=== PATIENT | male | born 1940 | race Caucasian/White ===

== ENCOUNTER → 2017-03-17 | Outpatient (CLI) | payer MEDICARE, OTHER ==
[~2017-03-17] MED LIST: AMLO1CAP7 PO; AMOX1TAB12 PO; ASPI-496 PO; CHOL400C PO; DESM0.1T PO; EMPA25TA PO; EXEN2VIA INJ; FENO150C4 PO; FERR324T8 PO; GADOBUTROL 10 MMOL/10 ML VIAL ONE; HYDR10TA PO; LEVO75TA PO; LIRA0.6P SC; LISI-420 PO; METF-365 PO; METF-366 PO; SIMV20TA3 PO; [UNRECOGNIZED DRUG - CODE] SQ
== END ==
LOC: CFH 13:04
PROVIDERS: ATTEND Neurological Surgery
DX: I67.9 Cerebrovascular disease, unspecified (principal); R90.82 White matter disease, unspecified; G31.89 Other specified degenerative diseases of nervous system; Z86.73 Personal history of transient ischemic attack (TIA), and cerebral infarction without residual deficits
CPT/HCPCS: 70553; A9585

== ENCOUNTER 2017-05-31 14:30 | Inpatient (IN) | payer MEDICARE, OTHER ==
[~2017-05-31] VITALS: Ht 180.3 cm; Wt 83.1 kg
[~2017-05-31 14:30] MED LIST changes: +CEFD300C37 PO; +FLUC200T PO; -GADOBUTROL 10 MMOL/10 ML VIAL ONE
[2017-05-31] MEDS ORDERED: SODIUM CHLORIDE FLUSH 10ML SYR IVF ONE (15:30)
[2017-05-31 15:31] LABS: MEAN CORPUSCULAR HEMOGLOBIN 29.2 pg (27.5-34.5); MEAN CORPUSCULAR HGB CONC 33.1 g/dL (33.2-36.2); MEAN CORPUSCULAR VOLUME 88.3 fL (81-97); MEAN PLATELET VOLUME 9.1 fL (7.4-10.4); PLATELET COUNT 421 x10^3/uL (130-400); RED BLOOD COUNT 4.52 x10^6/uL (4.38-5.82); RED CELL DISTRIBUTION WIDTH 16.7 % (9.4-14.8)
[2017-05-31 15:38] LABS: ALANINE AMINOTRANSFERASE 30 U/L (12-78); ALBUMIN 2.8 g/dL (3.4-5.0); ANION GAP 11 mmol/L (5-15); CALCIUM 8.6 mg/dL (8.5-10.1); CHLORIDE 109 mmol/L (98-107); CREATININE 1.29 mg/dL (0.7-1.3)
[2017-05-31 15:40] LABS: ALKALINE PHOSPHATASE 40 U/L (45-117); BILIRUBIN,TOTAL 0.7 mg/dL (0.2-1.0); TOTAL PROTEIN 6.9 g/dL (6.4-8.2)
[2017-05-31 15:46] LABS: BASOPHILS # (AUTO) 0.02 x10^3/uL (0-0.1); BASOPHILS % (AUTO) 0 % (0-1); EOSINOPHILS # (AUTO) 0.09 x10^3/uL (0-0.4); EOSINOPHILS % (AUTO) 1 % (1-7); LYMPHOCYTES # (AUTO) 0.98 x10^3/uL (1-3.4); LYMPHOCYTES % (AUTO) 14 % (22-44); MD SCAN; MONOCYTES # (AUTO) 0.88 x10^3/uL (0.2-0.8); MONOCYTES % (AUTO) 12 % (2-9); NEUTROPHILS % (AUTO) 73 % (42-75)
[2017-05-31 16:02] LABS: CULTURE INDICATED? YES; MICROSCOPIC INDICATED
[2017-05-31 16:10] LABS: TROPONIN I 0.025 ng/mL (0.000-0.045)
[2017-05-31 16:16] LABS: RAPID INFLUENZA A Negative (Negative); RAPID INFLUENZA B Negative (Negative)
[2017-05-31] MEDS ORDERED: CEFTRIAXONE PMX 1GM/50ML 50 ML ONE (16:55)
[2017-05-31] MEDS ORDERED: CLOP75TA52 PO (16:58)
[2017-05-31] MEDS ORDERED: ATOR80TA PO (16:59)
[2017-05-31] MEDS ORDERED: VANCOMYCIN PER PHARMACY MC PRN ×2 (17:00→18:00)
[2017-05-31] MEDS ORDERED: VANCOMYCIN 1,800 MG in SODIUM CHLORIDE 0.9% 250 ML IV ONE (17:00)
[2017-05-31] MEDS ORDERED: PHARMACOKINETIC CONSULTATION MC ONE ×2 (17:00→19:00)
[2017-05-31] MEDS ORDERED: AMLO5TAB2 PO (17:00)
[2017-05-31] MEDS ORDERED: CEFTRIAXONE PMX 1GM/50ML 50 ML IV ONE (17:00)
[2017-05-31] MEDS ORDERED: METF-365 PO (17:01)
[2017-05-31] MEDS ORDERED: DESM0.1T2 PO (17:03)
[2017-05-31] MEDS ORDERED: EMPA25TA PO (17:06)
[2017-05-31] MEDS ORDERED: SOMA15PE2 SC (17:07)
[2017-05-31] MEDS ORDERED: CHOL5000 PO (17:08)
[2017-05-31] MEDS ORDERED: ONDANSETRON 2MG/ML, 2ML IVPush PRN (18:00)
[2017-05-31] MEDS ORDERED: CEFTRIAXONE PMX 1GM/50ML 50 ML IV SCH (18:00)
[2017-05-31] MEDS ORDERED: FLUCONAZOLE 200 MG/100 ML 100 ML IV SCH (18:00)
[2017-05-31] MEDS ORDERED: ACETAMINOPHEN 325 MG TABLET PO PRN (18:00)
[2017-05-31] MEDS ORDERED: BISACODYL 10 MG SUPP PR PRN (18:00)
[2017-05-31 18:11] VITALS: BP 149/72
[2017-05-31] MEDS: HEPARIN 5,000 UNITS/ML, 1ML SQ SCH (18:38)
[2017-05-31] MEDS: NS + 20MEQ KCL 1,000 ML IV SCH (18:38)
[2017-05-31] MEDS: HYDROCORTISONE 20 MG TABLET PO SCH (18:38)
[2017-05-31] MEDS ORDERED: PHARMACOKINETIC MONITORING MC PRN (19:00)
[2017-05-31] MEDS ORDERED: VANCOMYCIN 1,800 MG in SODIUM CHLORIDE 0.9% 250 ML IV SCH (19:00)
[2017-05-31 19:49] VITALS: BP 151/78
[2017-05-31] MEDS ORDERED: EMPAGLIFLOZIN 25 MG HOMEMEDPO SCH (20:42)
[2017-05-31] MEDS: SOMATROPIN SC SCH (21:00)
[2017-05-31] MEDS: ATORVASTATIN 80 MG TABLET PO SCH (21:18)
[2017-05-31] MEDS: AMLODIPINE 5 MG TABLET PO SCH (21:18)
[2017-05-31] MEDS: LISINOPRIL 20 MG TABLET PO SCH (21:18)
[2017-05-31] MEDS: DESMOPRESSIN 0.2 MG TABLET PO SCH (21:21)
[2017-05-31] MEDS: NAPHAZOLINE/PHENIRAMINE OPHTH LEFTEYE SCH (22:06)
[2017-06-01 01:51] VITALS: BP 133/73
[2017-06-01] MEDS: NS + 20MEQ KCL 1,000 ML IV SCH ×3 (03:50→20:52)
[2017-06-01 05:22] LABS: BASOPHILS # (AUTO) 0.02 x10^3/uL (0-0.1); BASOPHILS % (AUTO) 0 % (0-1); EOSINOPHILS % (AUTO) 2 % (1-7); LYMPHOCYTES # (AUTO) 1.48 x10^3/uL (1-3.4); LYMPHOCYTES % (AUTO) 26 % (22-44); MD NO; MEAN CORPUSCULAR HEMOGLOBIN 29.6 pg (27.5-34.5); MEAN CORPUSCULAR HGB CONC 32.9 g/dL (33.2-36.2); MEAN PLATELET VOLUME 9.3 fL (7.4-10.4); MONOCYTES # (AUTO) 0.94 x10^3/uL (0.2-0.8); MONOCYTES % (AUTO) 16 % (2-9); NEUTROPHILS # (AUTO) 3.19 x10^3/uL (1.8-6.8); NEUTROPHILS % (AUTO) 56 % (42-75); PLATELET COUNT 375 x10^3/uL (130-400); RED BLOOD COUNT 4.13 x10^6/uL (4.38-5.82); RED CELL DISTRIBUTION WIDTH 16.4 % (9.4-14.8)
[2017-06-01 05:28] LABS: ALANINE AMINOTRANSFERASE 25 U/L (12-78); ALBUMIN 2.4 g/dL (3.4-5.0); ANION GAP 10 mmol/L (5-15); CALCIUM 7.9 mg/dL (8.5-10.1); CHLORIDE 112 mmol/L (98-107); CREATININE 1.12 mg/dL (0.7-1.3)
[2017-06-01 05:39] LABS: ALKALINE PHOSPHATASE 35 U/L (45-117); BILIRUBIN,TOTAL 0.7 mg/dL (0.2-1.0); TOTAL PROTEIN 6.2 g/dL (6.4-8.2)
[2017-06-01 05:46] LABS: THYROID STIMULATING HORMONE < 0.005 mIU/L (0.358-3.740)
[2017-06-01] MEDS: NAPHAZOLINE/PHENIRAMINE OPHTH LEFTEYE SCH ×4 (05:59→20:53)
[2017-06-01] MEDS: ASPIRIN 81 MG TABLET EC PO SCH (05:59)
[2017-06-01] MEDS: LEVOTHYROXINE 88 MCG TABLET PO SCH (05:59)
[2017-06-01] MEDS: HEPARIN 5,000 UNITS/ML, 1ML SQ SCH ×2 (06:01→18:21)
[2017-06-01] MEDS: TEMPLATE NON-FORMULARY MED. (Liraglutide (Victoza 2-Pak) 1.8 MG) SC SCH (07:30)
[2017-06-01 08:15] VITALS: BP 152/79
[2017-06-01] MEDS: LISINOPRIL 20 MG TABLET PO SCH ×2 (09:15→20:53)
[2017-06-01] MEDS: FERROUS GLUCONATE 324 MG TABLET PO SCH (09:15)
[2017-06-01] MEDS: CLOPIDOGREL 75 MG TABLET PO SCH (09:15)
[2017-06-01] MEDS: HYDROCORTISONE 20 MG TABLET PO SCH ×2 (09:15→18:19)
[2017-06-01] MEDS: FENOFIBRATE 145 MG TABLET PO SCH (09:16)
[2017-06-01] MEDS: AMLODIPINE 5 MG TABLET PO SCH ×2 (09:17→20:53)
[2017-06-01] MEDS: DESMOPRESSIN 0.2 MG TABLET PO SCH ×2 (09:18→20:53)
[2017-06-01] MEDS: CHOLECALCIFEROL 1,000 UNIT TABLET PO SCH (09:23)
[2017-06-01] MEDS: MICAFUNGIN 100 MG in SODIUM CHLORIDE 0.9% 100 ML IV SCH (09:24)
[2017-06-01] MEDS: LINEZOLID PMX 600MG/300ML 300 ML IV SCH ×2 (10:40→20:53)
[2017-06-01 13:04] VITALS: BP 150/83
[2017-06-01 18:52] VITALS: BP 158/72
[2017-06-01] MEDS: SOMATROPIN SC SCH (20:52)
[2017-06-01] MEDS: ATORVASTATIN 80 MG TABLET PO SCH (20:53)
[2017-06-02 01:21] VITALS: BP 137/72
[2017-06-02 04:53] LABS: BASOPHILS # (AUTO) 0.02 x10^3/uL (0-0.1); BASOPHILS % (AUTO) 0 % (0-1); EOSINOPHILS # (AUTO) 0.03 x10^3/uL (0-0.4); EOSINOPHILS % (AUTO) 1 % (1-7); LYMPHOCYTES # (AUTO) 1.12 x10^3/uL (1-3.4); LYMPHOCYTES % (AUTO) 22 % (22-44); MD NO; MEAN CORPUSCULAR HGB CONC 33.8 g/dL (33.2-36.2); MEAN CORPUSCULAR VOLUME 88.8 fL (81-97); MEAN PLATELET VOLUME 9.3 fL (7.4-10.4); MONOCYTES # (AUTO) 0.93 x10^3/uL (0.2-0.8); MONOCYTES % (AUTO) 18 % (2-9); NEUTROPHILS # (AUTO) 2.99 x10^3/uL (1.8-6.8); NEUTROPHILS % (AUTO) 59 % (42-75); PLATELET COUNT 395 x10^3/uL (130-400); RED BLOOD COUNT 4.04 x10^6/uL (4.38-5.82); RED CELL DISTRIBUTION WIDTH 16.4 % (9.4-14.8)
[2017-06-02 05:05] LABS: ALBUMIN 2.3 g/dL (3.4-5.0); ANION GAP 11 mmol/L (5-15); CALCIUM 7.9 mg/dL (8.5-10.1); CHLORIDE 109 mmol/L (98-107); CREATININE 0.97 mg/dL (0.7-1.3)
[2017-06-02] MEDS: HEPARIN 5,000 UNITS/ML, 1ML SQ SCH ×2 (06:21→18:26)
[2017-06-02] MEDS: NAPHAZOLINE/PHENIRAMINE OPHTH LEFTEYE SCH ×4 (06:21→21:20)
[2017-06-02] MEDS: LEVOTHYROXINE 88 MCG TABLET PO SCH (06:21)
[2017-06-02] MEDS: ASPIRIN 81 MG TABLET EC PO SCH (06:21)
[2017-06-02] MEDS: NS + 20MEQ KCL 1,000 ML IV SCH ×2 (06:33→17:44)
[2017-06-02 07:44] VITALS: BP 178/65
[2017-06-02] MEDS: MICAFUNGIN 100 MG in SODIUM CHLORIDE 0.9% 100 ML IV SCH (08:06)
[2017-06-02] MEDS: TEMPLATE NON-FORMULARY MED. (Liraglutide (Victoza 2-Pak) 1.8 MG) SC SCH (08:06)
[2017-06-02] MEDS: HYDROCORTISONE 20 MG TABLET PO SCH ×2 (08:06→17:45)
[2017-06-02] MEDS: FERROUS GLUCONATE 324 MG TABLET PO SCH (08:15)
[2017-06-02] MEDS: CHOLECALCIFEROL 1,000 UNIT TABLET PO SCH (08:15)
[2017-06-02] MEDS: CLOPIDOGREL 75 MG TABLET PO SCH (08:15)
[2017-06-02] MEDS: AMLODIPINE 5 MG TABLET PO SCH ×2 (08:15→21:20)
[2017-06-02] MEDS: DESMOPRESSIN 0.2 MG TABLET PO SCH ×2 (08:16→21:21)
[2017-06-02] MEDS: FENOFIBRATE 145 MG TABLET PO SCH (08:16)
[2017-06-02] MEDS: LISINOPRIL 20 MG TABLET PO SCH ×2 (08:20→21:20)
[2017-06-02 09:36] LABS: CLOSTRIDIUM DIFFICILE ANTIGEN NEGATIVE; CLOSTRIDIUM DIFFICILE TOXIN NEGATIVE (Negative)
[2017-06-02] MEDS: LINEZOLID PMX 600MG/300ML 300 ML IV SCH ×2 (09:48→21:20)
[2017-06-02 12:55] VITALS: BP 148/67
[2017-06-02 20:17] VITALS: BP 142/68
[2017-06-02] MEDS: ATORVASTATIN 80 MG TABLET PO SCH (21:20)
[2017-06-02] MEDS: SOMATROPIN SC SCH (21:31)
[2017-06-03 01:25] VITALS: BP 152/62
[2017-06-03] MEDS: NS + 20MEQ KCL 1,000 ML IV SCH ×2 (03:42→12:50)
[2017-06-03 04:33] LABS: BASOPHILS # (AUTO) 0.02 x10^3/uL (0-0.1); BASOPHILS % (AUTO) 0 % (0-1); EOSINOPHILS # (AUTO) 0.04 x10^3/uL (0-0.4); EOSINOPHILS % (AUTO) 1 % (1-7); LYMPHOCYTES # (AUTO) 1.13 x10^3/uL (1-3.4); LYMPHOCYTES % (AUTO) 20 % (22-44); MD NO; MEAN CORPUSCULAR HEMOGLOBIN 29.8 pg (27.5-34.5); MEAN CORPUSCULAR HGB CONC 33.4 g/dL (33.2-36.2); MEAN PLATELET VOLUME 8.7 fL (7.4-10.4); MONOCYTES # (AUTO) 0.69 x10^3/uL (0.2-0.8); MONOCYTES % (AUTO) 12 % (2-9); NEUTROPHILS # (AUTO) 3.87 x10^3/uL (1.8-6.8); NEUTROPHILS % (AUTO) 67 % (42-75); PLATELET COUNT 461 x10^3/uL (130-400); RED BLOOD COUNT 4.07 x10^6/uL (4.38-5.82); RED CELL DISTRIBUTION WIDTH 16.5 % (9.4-14.8)
[2017-06-03 04:47] LABS: % IRON SATURATION 21 % (20-55); ALBUMIN 2.3 g/dL (3.4-5.0); ANION GAP 9 mmol/L (5-15); CHLORIDE 111 mmol/L (98-107); CREATININE 0.97 mg/dL (0.7-1.3); IRON LEVEL 48 mcg/dL (65-175); TOTAL IRON BINDING CAPACITY 227 mcg/dL (250-450)
[2017-06-03] MEDS: HEPARIN 5,000 UNITS/ML, 1ML SQ SCH (06:20)
[2017-06-03] MEDS: NAPHAZOLINE/PHENIRAMINE OPHTH LEFTEYE SCH ×2 (06:20→12:49)
[2017-06-03] MEDS: ASPIRIN 81 MG TABLET EC PO SCH (06:20)
[2017-06-03] MEDS: LEVOTHYROXINE 88 MCG TABLET PO SCH (06:20)
[2017-06-03 07:18] VITALS: BP 153/79
[2017-06-03] MEDS: FERROUS GLUCONATE 324 MG TABLET PO SCH (08:35)
[2017-06-03] MEDS: CLOPIDOGREL 75 MG TABLET PO SCH (08:35)
[2017-06-03] MEDS: LISINOPRIL 20 MG TABLET PO SCH (08:36)
[2017-06-03] MEDS: FENOFIBRATE 145 MG TABLET PO SCH (08:36)
[2017-06-03] MEDS: DESMOPRESSIN 0.2 MG TABLET PO SCH (08:36)
[2017-06-03] MEDS: HYDROCORTISONE 20 MG TABLET PO SCH (08:36)
[2017-06-03] MEDS: CHOLECALCIFEROL 1,000 UNIT TABLET PO SCH (08:36)
[2017-06-03] MEDS: AMLODIPINE 5 MG TABLET PO SCH (08:36)
[2017-06-03] MEDS: MICAFUNGIN 100 MG in SODIUM CHLORIDE 0.9% 100 ML IV SCH (08:37)
[2017-06-03] MEDS: TEMPLATE NON-FORMULARY MED. (Liraglutide (Victoza 2-Pak) 1.8 MG) SC SCH (08:45)
[2017-06-03] MEDS: LINEZOLID PMX 600MG/300ML 300 ML IV SCH (10:00)
[2017-06-03] MEDS ORDERED: LINE600T37 PO (11:43)
[2017-06-03] MEDS ORDERED: FLUC200T PO (11:44)
[2017-06-03 12:43] VITALS: BP 145/74
== END 2017-06-03 15:00 | disposition home or self-care (01) | DRG 682 ==
LOC: ED 16:31 → EDIP 16:54 → 3NW 18:00
PROVIDERS: ADMIT Hospitalist; ATTEND Hospitalist
DX: N17.9 Acute kidney failure, unspecified (principal); E43 Unspecified severe protein-calorie malnutrition; D68.69 Other thrombophilia; E11.22 Type 2 diabetes mellitus with diabetic chronic kidney disease; I48.2 Chronic atrial fibrillation; N39.0 Urinary tract infection, site not specified; D35.2 Benign neoplasm of pituitary gland; Z68.25 Body mass index [BMI] 25.0-25.9, adult; I25.10 Atherosclerotic heart disease of native coronary artery without angina pectoris; Z96.649 Presence of unspecified artificial hip joint; Z16.21 Resistance to vancomycin; E78.5 Hyperlipidemia, unspecified; B95.2 Enterococcus as the cause of diseases classified elsewhere; R35.0 Frequency of micturition; I12.9 Hypertensive chronic kidney disease with stage 1 through stage 4 chronic kidney disease, or unspecified chronic kidney disease; N18.9 Chronic kidney disease, unspecified; Z79.82 Long term (current) use of aspirin; Z79.899 Other long term (current) drug therapy; Z87.440 Personal history of urinary (tract) infections; Z87.891 Personal history of nicotine dependence; Z95.1 Presence of aortocoronary bypass graft; Z95.5 Presence of coronary angioplasty implant and graft
CPT/HCPCS: 36415; 71045; 76770; 80048; 80053; 81001; 82040; 82728; 82962; 83540; 83550; 83605; 83735; 84100; 84443; 84484; 85025; 87040; 87077; 87086; 87186; 87324; 87400; 99285; J0696; J1644; J2020; J2248; J2405; J3480; J1450